=== PATIENT | male | born 1980 | race Caucasian/White ===

== ENCOUNTER 2020-09-05 06:07 | Day surgery (SDC) | payer OTHER, BC ==
[2020-08-29 11:31] LABS: CLARITY,URINE CLEAR (Clear); COLOR,URINE YELLOW (Yellow); GLUCOSE, URINE NEGATIVE (Neg); KETONES,URINE NEGATIVE (Neg); LEUKOCYTE ESTERASE ,URINE NEGATIVE (Neg); NITRITES, URINE NEGATIVE (Neg); OCCULT BLOOD,URINE TRACE-INTACT (Neg); PH,URINE 6.5 (4.8-8.0); PROTEIN,URINE NEGATIVE (Neg); UROBILINOGEN,URINE 0.2 E.U/dL (0.2-1.0)
[2020-08-29 11:32] LABS: BASOPHILS % (AUTO) 0.4 % (0-1); EOSINOPHILS # (AUTO) 0.1 X10'3 (0-0.9); EOSINOPHILS % (AUTO) 1.6 % (0-6); LYMPHOCYTES # (AUTO) 1.5 X10'3 (1.1-4.8); LYMPHOCYTES % (AUTO) 20.9 % (21-51); MEAN CORPUSCULAR HGB CONC 33.8 g/dL (33.0-36.5); MEAN CORPUSCULAR VOLUME 91.6 FL (78-98); MEAN PLATELET VOLUME 7.5 FL (7.4-10.4); MONOCYTES # (AUTO) 0.7 X10'3 (0-0.9); MONOCYTES % (AUTO) 10.5 % (2-12); NEUTROPHILS # (AUTO) 4.7 X10'3 (1.8-7.7); NEUTROPHILS % (AUTO) 66.6 % (42-75); PRE OP HEMATOCRIT 49.5 % (42.0-52.0); PRE OP HEMOGLOBIN 16.7 g/dL (14.0-17.9); PRE OP PLATELET COUNT 279 X10'3 (140-440); RED CELL DISTRIBUTION WIDTH 12.7 % (11.5-14.5)
[2020-08-29 11:36] LABS: UA COLLECTION TYPE CLN CATCH MIDSTREAM
[2020-08-29 11:44] LABS: BACTERIA,URINE NONE SEEN /HPF (Neg); RBC,URINE 0-2 /HPF (0-2); SQUAMOUS EPITHELIAL CELL,UR NONE SEEN /LPF (FEW); WBC,URINE 0-4 /HPF (0-4)
[2020-08-29 11:49] LABS: ALBUMIN 4.2 G/DL (3.4-5.0); ALBUMIN/GLOBULIN RATIO 1.4 (1.1-1.5); ALKALINE PHOSPHATASE 62 IU/L (46-116); BLOOD UREA NITROGEN 20 MG/DL (7-18); BUN/CREATININE RATIO 19.8 (5.4-32.0); CALCIUM 9.1 MG/DL (8.5-10.1); CHLORIDE 105 MMOL/L (99-107); CREATININE 1.01 MG/DL (0.60-1.10); PRE OP ALT 39 U/L (30-65); PRE OP ANION GAP 7 (8-16); PRE OP AST 28 U/L (10-37); PRE OP BILIRUB, TOTAL 1.7 MG/DL (0.0-1.0); PRE OP GLUCOSE 106 MG/DL (70-104); PRE OP POTASSIUM 4.6 MMOL/L (3.4-5.1); PRE OP SODIUM 141 MMOL/L (135-145); TOTAL CARBON DIOXIDE 28.6 MMOL/L (24-32); TOTAL PROTEIN 7.2 G/DL (6.4-8.2); eGFR 82 ML/MIN
[2020-09-05] VITALS (15 sets, daily range): BP systolic 118–148; BP diastolic 57–94
[~2020-09-05] VITALS: Ht 182.9 cm; Wt 87.1 kg
[2020-09-05] MEDS: ceFAZolin 2gm in dextrose, iso 50 ML IV ONE ×2 (05:30→06:39)
[~2020-09-05 06:07] MED LIST: NO HOME MEDS; famotidine 20mg tablet PO ONE; ringers solution, lacted 1,000 ML IV SCH
[2020-09-05] MEDS ORDERED: LIDOcaine 1% (10mg/ml) 2ml vial ONE (06:27)
[2020-09-05] MEDS ORDERED: BUPIVAcaine/PF 2.5 mg/ml (0.25%) 30ml vial ONE (07:40)
[2020-09-05] MEDS ORDERED: sevoflurane 250ml liquid IH ONE (08:23)
[2020-09-05] MEDS ORDERED: midazolam 2 mg/2 ml injection ONE (08:26)
[2020-09-05] MEDS ORDERED: fentaNYL /PF 50mcg/ml 5ml ampule ONE (08:27)
[2020-09-05] MEDS ORDERED: rocuronium 10mg/ml inj IV ONE ×2 (08:51)
[2020-09-05] MEDS ORDERED: LIDOcaine 2% (20mg/ml) 5ml vial ONE (08:51)
[2020-09-05] MEDS ORDERED: propofol inj 20 ML IV ONE ×2 (08:51)
[2020-09-05] MEDS ORDERED: dexamethasone sod phosphate 4mg/ml inj. ONE (11:37)
[2020-09-05] MEDS ORDERED: ondansetron/PF 4mg/2ml inj ONE (11:37)
[2020-09-05] MEDS ORDERED: morphine 10mg/ml inj. ONE (11:39)
[2020-09-05] MEDS ORDERED: sugammadex 200mg/2ml injection IV ONE (11:39)
[2020-09-05] MEDS ORDERED: ketorolac trometh. 30mg/ml inj. ONE (11:40)
--- NOTE | 2020-09-05 12:02 | NUR ---
Received from OR via [facility] , accompanied by Anesthesiologist EAN and report given by Anesthesiolgist. Three abdominal bandages horizontally, cdi. IV RIGHT LOWER EXTREMITY, PATENT, 20 GAUGE RUNNING LR AT 100. VSS. DENIES PAIN AT THIS TIME. Addendum: 09/05/20 at 1217 by Torrey Santos RN, RN Amended: Links added.
[2020-09-05] MEDS ORDERED: ringers solution, lacted 1,000 ML IV SCH (12:50)
[2020-09-05] MEDS ORDERED: proCHLORperazine 10 MG/2 ml inj IV PRN (12:50)
[2020-09-05] MEDS ORDERED: acetaminophen 1,000mg/100ml IV 100 ML IV PRN (12:50)
[2020-09-05] MEDS ORDERED: meperidine/PF 25mg/ml syringe IV PRN ×3 (12:50)
[2020-09-05] MEDS ORDERED: morphine 2 MG/ML inj. syringe IV PRN (12:50)
[2020-09-05] MEDS ORDERED: hydrALAZINE 20mg/ml inj. IV PRN (12:50)
[2020-09-05] MEDS ORDERED: morphine 4 MG/ML inj SYRINge IV PRN (12:50)
[2020-09-05] MEDS ORDERED: labetalol 20mg/4ml (5mg/ml) syringe IV PRN (12:50)
[2020-09-05] MEDS ORDERED: ondansetron/PF 4mg/2ml inj IV PRN (12:50)
--- NOTE | 2020-09-05 14:12 | NUR ---
PATIENT VERBALIZED UNDERSTANDING, OPPORTUNITY TO ASK QUESTIONS GIVEN AND PATIENT COMFORTABLE WITH DC. IV TAKEN OUT WITHOUT COMPLICATION. PATIENT HAS MET ALL DC CRITERIA FOR DC HOME. I HAVE REVIEWED D/C INSTRUCTIONS WITH PATIENT. TAKEN OUT VIA WHEELCHAIR WHERE PATIENT WAS TAKEN HOME WITH ALL BELONGINGS. FAMILY GAVE PATIENT TRANSPORT HOME. SPOUSE HAS ARRIVED AND DROVE PATIENT HOME. VOIDED AND HAS NO COMPLAINTS AT THIS TIME. Addendum: 09/05/20 at 1429 by Torrey Santos RN, RN Amended: Links added.
== END 2020-09-05 14:02 | disposition home or self-care (01) ==
LOC: PAS 06:07
PROVIDERS: ATTEND Surgery
DX: K40.20 Bilateral inguinal hernia, without obstruction or gangrene, not specified as recurrent (principal); Z30.2 Encounter for sterilization; D17.6 Benign lipomatous neoplasm of spermatic cord; Z20.822 Contact with and (suspected) exposure to COVID-19; Z72.89 Other problems related to lifestyle; Z79.899 Other long term (current) drug therapy
CPT/HCPCS: 36415; 49650; 55559; 80053; 81001; 82948; 85025; 87635; 93005; C1758; C1781; C9399; J1100; J1885; J2001; J2250; J2270; J2405; J2704; J3010; J3490; J7120; S2900; A4215; A4618